=== PATIENT | female | born 1995 ===

== ENCOUNTER 2019-01-23 17:05 | Emergency (ER) | payer OTHER ==
[2019-01-23] MEDS ORDERED: Ibuprofen TAB* 600 MG PO ONE (19:22)
[2019-01-23 19:42] VITALS: BP 109/70
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
== END 2019-01-23 19:38 | disposition home or self-care (01) ==
LOC: ED 17:05
DX: S16.1XXA Strain of muscle, fascia and tendon at neck level, initial encounter (principal); V49.50XA Passenger injured in collision with unspecified motor vehicles in traffic accident, initial encounter; Y92.410 Unspecified street and highway as the place of occurrence of the external cause; F90.9 Attention-deficit hyperactivity disorder, unspecified type
CPT/HCPCS: 70450; 71045; 72125; 99282; A9270-GY